=== PATIENT | female | born 1945 | race Two or more races ===

== ENCOUNTER 2019-12-06 05:33 | Day surgery (SDC) | payer OTHER ==
[~2019-12-06 05:33] MED LIST: ASPIR 8181 MG PO; PRILOSEC OTC20 MG PO; VERAPAMIL ER240 MG PO; VITAMIN D310 MC1
[2019-12-06] MEDS ORDERED: PERCOCET 5-3251 EACH PO (12:25)
[2019-12-06] MEDS ORDERED: RECTICARE30 GM TOP (12:26)
== END 2019-12-06 20:07 | disposition home or self-care (01) ==
LOC: CIR.AMB 05:33
DX: K62.82 Dysplasia of anus (principal)

== ENCOUNTER 2020-12-30 06:45 | Day surgery (SDC) | payer OTHER ==
[~2020-12-30 06:45] MED LIST changes: +PERCOCET 5-3251 EACH PO; +RECTICARE30 GM TOP
== END 2020-12-30 10:55 | disposition home or self-care (01) ==
LOC: AMB-ENDOS 06:45
PROVIDERS: ATTEND Surgery
DX: K62.89 Other specified diseases of anus and rectum (principal); Z20.822 Contact with and (suspected) exposure to COVID-19